=== PATIENT | female | born 1950 | race Caucasian/White ===

== ENCOUNTER 2018-08-27 08:26 | Emergency (ER) | payer OTHER ==
[2018-08-27 08:44] VITALS: BP 98/70
--- NOTE | 2018-08-27 08:45 | UC ---
Minor Trauma HPI - HPI Summary HPI Summary: Pt presents for eval of right anterior chest wall pain. Pt was hiking 3 days ago - tripped and fell forward. Pt sturk left knee and right anterior chest wall. Pt with persistent discomfort right anterior chest wall. Pt states pain worse with direct palp just superior to right breast, no ecchymosis. Pain worse with movement, palpation. No sob. No neck or back pain. no other injuries. No open wounds. took Aleve with little help. Pt states just concerned pain not gone and wanted to get check out for ? fx rib meds reviewed - History of Current Complaint Chief Complaint: UCChestPain Stated Complaint: CHEST INJURY FELL Time Seen by Provider: 08/27/18 08:44 ?: No Pain Intensity: 6 - Allergies/Home Medications Allergies/Adverse Reactions: Allergies Allergy/AdvReac Type Severity Reaction Status Date / Time latex Allergy Mild Rash Verified 08/27/18 08:44 Home Medications: Home Medications Naproxen Sodium [Aleve] 440 mg PO ONCE PRN 08/27/18 [History Confirmed 08/27/18] PMH/Surg Hx/FS Hx/Imm Hx Previously Healthy: Yes - Surgical History Surgical History: Yes Surgery Procedure, Year, and Place: T&A - Family History Known Family History: Positive: Non-Contributory - Social History Lives: With Family Alcohol Use: Weekly Substance Use Type: None Smoking Status (MU): Never Smoked Tobacco Review of Systems All Other Systems Reviewed And Are Negative: Yes Constitutional: Positive: Negative Skin: Positive: Negative Eyes: Positive: Negative Cardiovascular: Positive: Negative, Other - chest wall Is Patient Immunocompromised?: No Physical Exam - Summary Physical Exam Summary: Vital Signs Reviewed: Yes A+Ox3, sitting comfortable, changes position easily Eyes: Conjunctiva Clear, MARLY. EOM intact and full ENT: Hearing grossly normal TM x 2 clear, mmoist, uvula midline, no exudate, no erythema Neck: Positive: Supple Respiratory: Positive: No respiratory distress, No accessory muscle use + CTA throughout no w/r Cardiovascular: RRR nl s1, s2 no m/r CBT <2 sec, no bruits, + point tenderness reproducible right anterior chest wall pain at breast Discomfort tracks laterally to axilla. no crepitus. no ecchymosis abd soft + BS nt/nd no guarding, no distension Musculoskeletal Exam: DAHL x 4 without difficulty Strength Intact, ROM Intact full AROm upper ext against resistance pain reproduces with movement upper ext Neurological: Positive: Alert, + sensation throughout Psychological: Positive: Normal Response To outpatient receptionist Skin: Positive: no rash, no ecchymosis Triage Information Reviewed: Yes Vital Signs: Initial Vital Signs Temp 97.7 F 08/27/18 08:36 Pulse 60 08/27/18 08:36 Resp 18 08/27/18 08:36 BP 98/70 08/27/18 08:36 Pulse Ox 100 08/27/18 08:36 Diagnostics - Radiology No standard instances Radiology Interpretation Completed By: Radiologist - Patient Name: HERMANN LEIGH Medical Record#: [id number] Ordering Physician: Leisa Malave MD Acct.#: [id number] : 1950 Age: 68 Sex: F Location: [facility] Exam Date: 08/27/18906 ADM Status: REG ER Order Information: RIBS RT UNI W/ PA CH MIN 3 VWS Accession Number: [id number] CPT: 96725 Indication: Fall. 2 views of the chest demonstrate no mediastinal shift. Heart is of normal size and configuration. 3 views of the right ribs demonstrate no definite fracture. No other bone or joint abnormality is identified. IMPRESSION: No fracture of the right ribs is noted. No pneumothorax is noted. <Electronically signed by Lorene Wilson MD in OV> 08/27/18946 Dictated By: Lorene Wilson MD Dictated Date/Time: 08/27/18946 Transcribed Date/Time: 08/27/18945 Copy to: CC:Leisa Malave MD; Sergio Elizondo MD [facility] Imaging - [facility] [address] [address] ph ([phone]) ph ([phone]) ph ([phone]) This report is only to be considered final once signed by the Provider(s) as displayed in the "< Electronically Signed by >" field (s). Absence of a signature indicates the report is in a draft status and still needs to be finalized. In the event this document was created by someone other than the signing Provider, the individual initiating the document will be listed in the "Entered by:" or "Dictated by:" abdi. 1 of 1 Minor Trauma Course/Dx - Course Course Of Treatment: Patient presents to urgent care reporting continuation of pain in over her right anterior chest. Patient states she was hiking 3 days ago when she fell in her chest. Patient denies shortness of breath. Patient states pain is worse with movement of the patient. Patient states she gets relief with improvement. No anticoagulation on exam vital signs are stable. Patient does have reproducible point tenderness right anterior chest wall. No suspicion for fracture. We'll check chest x-ray. Patient declined analgesia. Discussed with patient was goes schedule pain-slow deep breaths. Heat and stretching. Patient comfortable, which x-ray results. - Differential Dx/Diagnosis Provider Diagnosis: Chest wall pain, Rib contusion Discharge - Sign-Out/Discharge Documenting (check all that apply): Patient Departure All imaging exams completed and their final reports reviewed: Yes - Discharge Plan Condition: Stable Disposition: HOME Patient Education Materials: Chest Wall Pain (ED), Rib Contusion (ED) Referrals: Sergio Eilzondo MD [Primary Care Provider] - Additional Instructions: - Okay to alternate ibuprofen (Advil, Motrin) and Tylenol (acetaminophen) every 3 hours for pain or fever. Take with food. Do NOT take for more than 4-5 days. - Okay to apply heat to the injured area - slow, gentle stretching exercises when the area is warm - Avoid strenous upper body exercise until you pain has resolved - pain may take 10-14 days to completely resolve- this is normal after an injury like this - If you develop shortness of breath, vomiting, increased pain, lightheadedness or any other concerns it is recommended you go to the emergency department for further evaluation - Billing Disposition and Condition Condition: STABLE Disposition: Home
== END 2018-08-27 10:20 | disposition home or self-care (01) ==
LOC: UCEAST 08:26
DX: R07.89 Other chest pain (principal); S20.211A Contusion of right front wall of thorax, initial encounter; W01.0XXA Fall on same level from slipping, tripping and stumbling without subsequent striking against object, initial encounter; Y93.01 Activity, walking, marching and hiking; Y92.9 Unspecified place or not applicable; Z91.040 Latex allergy status
CPT/HCPCS: 99211; G0463